=== PATIENT | female | born 1975 | race Caucasian/White ===

== ENCOUNTER 2017-04-29 10:46 | Inpatient (IN) | payer OTHER ==
[2017-04-28 16:26] VITALS: BMI 39.5
[~2017-04-29 10:46] MED LIST: BUPIVACAINE HCL/PF 0.5% (5MG/ML) 10 ML VIAL IJ ONE
[2017-04-29] MEDS ORDERED: BUPIVACAINE HCL/PF 0.5% (5MG/ML) 10 ML VIAL ONE (11:40)
[2017-04-29] MEDS ORDERED: MIDAZOLAM HCL 2 MG/2 ML SINGLE DOSE VIAL ONE (13:22)
--- NOTE | 2017-04-29 13:31 | HP ---
History & Physical Update - History History: No Change - Physical Physical: No Change - Assessment Assessment: No Change - Plan Plan: No Change (laparoscopic vertical lseeve gastrectomy possible open, possible liver biopsy, EGD)
[2017-04-29] MEDS ORDERED: PROPOFOL 20 ML ONE (13:36)
[2017-04-29] MEDS ORDERED: DEXAMETHASONE SOD PHOSPHATE 4 MG/1 ML VIAL ONE ×2 (13:36→15:22)
[2017-04-29] MEDS ORDERED: LIDOCAINE HCL/PF 2% SDV 5ML VIAL ONE (13:36)
[2017-04-29] MEDS ORDERED: ROCURONIUM BROMIDE 50 MG/5 ML VIAL ONE (13:37)
[2017-04-29] MEDS ORDERED: ceFAZolin SODIUM 1 GM VIAL ONE (13:37)
[2017-04-29] MEDS ORDERED: ceFAZolin SODIUM 1 GM VIAL IVPB ONE (13:44)
[2017-04-29] MEDS ORDERED: GLYCOPYRROLATE 0.2 MG/1 ML VIAL ONE (15:20)
[2017-04-29] MEDS ORDERED: NEOSTIGMINE METHYLSULFATE 0.5 MG/ML - 10 ML MDV ONE (15:20)
[2017-04-29] MEDS ORDERED: BUPIVACAINE HCL/PF 0.5% (5MG/ML) 10 ML VIAL IJ ONE (16:19)
--- NOTE | 2017-04-29 16:41 | OP ---
Operative Note - Note: Operative Date: 04/29/17 Pre-Operative Diagnosis: Morbid obesity Operation: Laparoscopic vertical sleeve gastrectomy, wedge liver biopsy, EGD Post-Operative Diagnosis: Other (Morbid obesity, hepatomegaly) Surgeon: Tom Owusu (alexander jones) Crop Picker: Aliyah Schultz Anesthesia: General Specimens Removed: Greater curvature of stomach, left lobe wedge liver biopsy Estimated Blood Loss (mls): 50 Drains & Tubes with Location: 36 Fr Bougie Operative Report Dictated: Yes
[2017-04-29] MEDS ORDERED: HYDROmorphone HCL CARPU-JECT 1 MG/1 ML DISP.SYRIN IVPB PRN (16:43)
[2017-04-29] MEDS ORDERED: HYDROmorphone HCL CARPU-JECT 2 MG/1 ML DISP.SYRIN ONE (16:43)
[2017-04-29] MEDS ORDERED: SODIUM CHLORIDE 1,000 ML IV SCH (16:45)
[2017-04-29] MEDS: HYDROmorphone HCL CARPU-JECT 1 MG/1 ML DISP.SYRIN IVPUSH PRN ×2 (16:45→17:50)
[2017-04-29] MEDS: ACETAMINOPHEN 1000 MG/100 ML VIAL (NON FORMULARY) IVPB SCH ×2 (16:50→22:28)
[2017-04-29] MEDS: METOCLOPRAMIDE HCL INJECTION 10 MG/2 ML VIAL IVPUSH SCH ×2 (16:55→22:28)
[2017-04-29] MEDS: ONDANSETRON 4 MG/2 ML VIAL IVPUSH SCH ×2 (17:00→22:28)
--- NOTE | 2017-04-29 17:13 | SPEC ---
DATE OF OPERATION: 04/29/2017 SURGEON: Tom Owusu MD INDUSTRIAL SEWER: YULY Burnette and YULY Sánchez PREOPERATIVE DIAGNOSES: 1. Morbid obesity, body mass index of 39.5. 2. Sleep apnea. POSTOPERATIVE DIAGNOSES: 1. Morbid obesity, body mass index of 39.5. 2. Sleep apnea. 3. Hepatomegaly. PROCEDURE: Laparoscopic vertical sleeve gastrectomy, laparoscopic wedge liver biopsy, and upper endoscopy/esophagogastroduodenoscopy. SPECIMEN: Greater curvature of the stomach and left lobe of the liver wedge liver biopsy. ESTIMATED BLOOD LOSS: 50 mL DRAINS: None. ANESTHESIA: GET. BOUGIE: 36-Korean. REASON FOR PROCEDURE: This is a 41-year-old female who presented to the office for weight loss options. After describing different options, she decided to proceed with a laparoscopic, possible open vertical sleeve gastrectomy, possible liver biopsy, and upper endoscopy. RISKS AND BENEFITS: After describing the different options for weight loss management, the patient decided to proceed with a laparoscopic, possible open vertical sleeve gastrectomy. The patient was seen by the respective subspecialties and cleared for surgery. The risks and benefits of the procedure were explained. These included bleeding, infection, hernia, MT, DVT, PE, injury to surrounding structures including the liver, colon, bowel, spleen, esophagus, vessel injury, nerve injury, weight regain, gastric leak, staple line leak, sleeve leak, obstruction, vitamin deficiency, hair loss and as some of the possible complications. The patient understood and signed informed consent. DESCRIPTION OF PROCEDURE: The patient was placed supine on the operating room table. The patient underwent general endotracheal intubation. A Hurtado catheter was inserted. The arms were brought out at 90 degrees and secured. A footboard was placed and the legs were secured laterally with padding. The abdomen was prepped and draped in the usual sterile fashion. A timeout was performed. An incision was made in the left upper quadrant and a Veress needle inserted. Pneumoperitoneum was established. Subsequently, the Veress needle was removed and a 12-mm trocar was placed. The laparoscopic camera was then inserted and inspection of the abdominal cavity was performed. An incision was then made in the supraumbilical area and a 15-mm trocar was placed under direct visualization. A 5-mm trocar was then placed in the right upper quadrant and a 5-mm trocar was placed below the left subcostal margin. A stab wound was made in the subxiphoid area and a Brianna clamp inserted and removed to dilate the tract. A Jordan liver retractor was inserted. The post was secured at the bedside by the nursing staff. The patient was placed in steep reverse Trendelenburg position and the Jordan liver retractor was used to secure the liver towards the anterior abdominal wall. The pylorus was identified and 6 cm proximal to it, the lesser sac was entered using the LigaSure device. All lateral attachments to the greater curvature of the stomach, including the short gastric vessels, were ligated using the LigaSure device toward the gastrosplenic and gastrophrenic ligaments. Once this was done in its entirety, it was confirmed that all tubes within the nasal or oropharyngeal cavity, including a temperature probe, was removed by Anesthesia. The bougie was then inserted by Anesthesia. Transection of the stomach was then begun staying adjacent to the bougie but away from the angularis. Transection of the stomach was performed near the portion of the stomach where the lesser sac was entered. Two laparoscopic Endo-HARISH black liane were used at this location. Laparoscopic Endo HARISH purple staple loads were then used for the remainder of the transection until the greater curvature of the stomach was fully transected. This was done staying close to the bougie. Care was taken to stay away from the angle of His cephalad. The staple line was then inspected. Hemostasis was identified. A leak test was then performed. It was clamped distally to the staple line. Irrigation solution was placed in the left upper quadrant and air was insufflated by Anesthesia into the sleeve. No leaks were identified. No obstruction was identified. This was done through the entirety of the staple line. At this point, the irrigation solution was suctioned and again, hemostasis was noted. A wedge liver biopsy was then performed. The left lobe of the liver was identified and a portion of the edge was grasped. Using electrocautery, a wedge of the liver was excised. This was removed and sent off the field as specimen. Hemostasis at the site of the wedge liver biopsy was attained using electrocautery. The 15-mm supraumbilical trocar was then removed and the greater curvature specimen removed from the site using a sponge stick burnett. The specimen was inspected and a Veress needle inserted. The specimen insufflated adequately and no leak was identified. The staple line was noted to be intact. A Chilango-El device was then used to temporarily close the fascia with a 0 Vicryl suture at the site. The 15-mm trocar was then reinserted and the 12-mm trocar in the left upper quadrant was removed. The fascia at this site was then closed using the Chilango-El device with a 0 Vicryl suture. Again, hemostasis was noted. The Jordan liver retractor was then removed under direct visualization. Pneumoperitoneum was desufflated and the fascial sutures were secured. Hemostasis was noted at all incision sites and Marcaine was injected at all incision sites. All incision sites were closed using 4-0 Biosyn. Sterile dressings were applied. The patient tolerated the procedure well and was transferred to the recovery room in stable condition with the Hurtado catheter intact. The patient was transferred to telemetry for further monitoring. In addition, at the end of the case, upper endoscopy was performed to further evaluate the staple line. The entirety of the staple line, gastric pouch was inspected. Hemostasis was noted. No leak or obstruction was noted. The stomach was suctioned, decompressed, and the endoscope removed. The patient tolerated the procedure well, was transferred to recovery room in stable condition. Tisha [id number]
[2017-04-29 17:31] LABS: HEMATOCRIT 38.9 % (32.4-45.2); HEMOGLOBIN 13.2 GM/dL (10.7-15.3); MCH 34.8 pg (25.7-33.7); MCHC 33.9 g/dl (32.0-36.0); MEAN CELL VOLUME 102.5 fl (80-96); MEAN PLT VOLUME 7.2 fl (7.5-11.1); PLATELET COUNT 272 K/MM3 (134-434); WHITE BLOOD COUNT 3.9 K/mm3 (4.0-10.0)
[2017-04-29 17:57] LABS: ALBUMIN 3.4 g/dl (3.4-5.0); ANION GAP 10 (8-16); BILIRUBIN,TOTAL 0.3 mg/dL (0.2-1.0); BLOOD UREA NITROGEN 8 mg/dL (7-18); CALCIUM 7.8 mg/dL (8.5-10.1); CHLORIDE 106 mmol/L (98-107); CO2 24 mmol/L (21-32); CREATININE 0.7 mg/dL (0.55-1.02); GLUCOSE,RANDOM 133 mg/dL (74-106); POTASSIUM 3.9 mmol/L (3.5-5.1); SGOT/AST 100 U/L (15-37); SGPT/ALT 71 U/L (12-78); SODIUM 140 mmol/L (136-145)
[2017-04-29 17:59] LABS: ALK PHOS 81 U/L (45-117); TOT PROT 7.2 g/dl (6.4-8.2)
--- NOTE | 2017-04-29 19:14 | SURG ---
Surgery Edger Machine Operator Note Edger Machine Operator: Aliyah Schultz PA-C Date of Service: 04/29/17 Diagnosis: morbid obesity, sleep apnea Procedure: Laparoscopic vertical sleeve gastrectomy, wedge liver biopsy, EGD I was present for the entirety of the operative procedure. For further detail, please refer to operative report. Visit type - Case Type Case Type: Scheduled Admission - Emergency Emergency Visit: No - New patient This patient is new to me today: Yes Date on this admission: 04/29/17
[2017-04-29] MEDS ORDERED: SODIUM CHLORIDE 0.45% 1,000 ML IV SCH (21:42)
[2017-04-29] MEDS: FAMOTIDINE 20 MG/50 ML IVPB 20 MG/50 ML MG IVPB SCH (22:27)
[2017-04-29] MEDS: ENOXAPARIN NA (PORCINE) 40 MG/0.4 ML DISP.SYRIN SQ SCH (22:29)
[2017-04-30] MEDS: METOPROLOL TARTRATE 5 MG/5 ML VIAL IVPB SCH ×4 (00:33→13:06)
[2017-04-30] MEDS: ONDANSETRON 4 MG/2 ML VIAL IVPUSH SCH ×6 (00:34→20:30)
[2017-04-30] MEDS: ACETAMINOPHEN 1000 MG/100 ML VIAL (NON FORMULARY) IVPB SCH ×2 (05:05→12:03)
[2017-04-30] MEDS: METOCLOPRAMIDE HCL INJECTION 10 MG/2 ML VIAL IVPUSH SCH ×4 (05:06→21:58)
[2017-04-30 07:31] LABS: HEMATOCRIT 36.8 % (32.4-45.2); HEMOGLOBIN 12.3 GM/dL (10.7-15.3); MCH 34.3 pg (25.7-33.7); MCHC 33.6 g/dl (32.0-36.0); MEAN CELL VOLUME 102.1 fl (80-96); MEAN PLT VOLUME 7.4 fl (7.5-11.1); PLATELET COUNT 225 K/MM3 (134-434); RDW 12.6 % (11.6-15.6); WHITE BLOOD COUNT 4.2 K/mm3 (4.0-10.0)
[2017-04-30 08:06] LABS: CHLORIDE 105 mmol/L (98-107); POTASSIUM 3.8 mmol/L (3.5-5.1); SODIUM 137 mmol/L (136-145)
[2017-04-30 08:19] LABS: ALBUMIN 3.1 g/dl (3.4-5.0); ALK PHOS 66 U/L (45-117); ANION GAP 10 (8-16); BILIRUBIN,TOTAL 0.5 mg/dL (0.2-1.0); BLOOD UREA NITROGEN 6 mg/dL (7-18); CALCIUM 7.2 mg/dL (8.5-10.1); CO2 22 mmol/L (21-32); CREATININE 0.5 mg/dL (0.55-1.02); GLUCOSE,RANDOM 104 mg/dL (74-106); SGOT/AST 204 U/L (15-37); SGPT/ALT 116 U/L (12-78); TOT PROT 6.2 g/dl (6.4-8.2)
[2017-04-30] MEDS ORDERED: FLU VACCINE QUAD 60 MCG/0.5 ML (MDV 17-18) IM ONE (10:00)
--- NOTE | 2017-04-30 10:32 | CON.CARD ---
Consult Consult Specialty:: Cardiology Referred by:: Dr. Owusu Reason for Consultation:: Post op HTN, tachycardia - History of Present Illness Chief Complaint: Post op from bariatric surgery History of Present Illness: 41 year old woman h/o obesity now s/p bariatric surgery noted to have post op HTN and sinus tachycardia. Pt was seen and examined today in [facility]. states that she has mild substernal chest discomfort since surgery. States that prior to surgery she has not had issues with her blood pressure and she monitors it at home. She did have palpitations occasionally in the past. As per documentation in the paper chart from her PMD she was planned for an echo preop but results not available. - History Source History Provided By: Patient, Medical Record Limitations to Obtaining History: Language Barrier - Past Medical History ...LMP: 04/01/17 ...LMP Comment: regular ...: No - Alcohol/Substance Use Hx Alcohol Use: Yes (socially) - Smoking History Smoking history: Never smoked Have you smoked in the past 12 months: No - Social History ADL: Independent History of Recent Travel: No Home Medications - Allergies Allergies/Adverse Reactions: Allergies Allergy/AdvReac Type Severity Reaction Status Date / Time No Known Drug Allergies Allergy Verified 04/29/17 11:33 - Home Medications Home Medications: Ambulatory Orders Docusate Sodium [Colace -] 100 mg PO TID #90 capsule 04/29/17 Famotidine [Pepcid] 20 mg PO BID #60 tablet 04/29/17 Oxycodone HCl/Acetaminophen [Percocet 5-325 mg Tablet] 1 - 2 tab PO Q6H #28 tab MDD 4 04/29/17 Family Disease History - Family Disease History Family Disease History: Other: Mother (HTN) Review of Systems - Review of Systems Constitutional: denies: No Symptoms, Chills, Diaphoresis, Fever, Lethargy, Loss of Appetite, Malaise, Night Sweats, Unintentional Wgt. Loss, Weakness, Other Eyes: denies: No Symptoms, Blind Spots, Blurred Vision, Double Vision, Eye Pain , Floaters, Photophobia, Recent Change in Vision, Other HENT: denies: No Symptoms, Difficult Swallowing, Ear Discharge, Ear Pain, Epistaxis, Gingival Bleeding, Hearing Loss, Mouth Swelling, Nasal Congestion, Ocular Prosthesis, Throat Pain, Toothache, Ringing in Ears, Other Neck: denies: No Symptoms, Decreased ROM, Lumps, Pain on Movement, Stiffness, Swollen Glands, Tenderness, Other Cardiovascular: denies: No Symptoms, Chest Pain, Edema, Palpitations, Shortness of Breath, Other Respiratory: denies: No Symptoms, Cough, Exercise Intolerance, Hemoptysis, Orthopnea, PND, Snoring, SOB, SOB on Exertion, Wheezing, Other Gastrointestinal: denies: No Symptoms, Abdominal Pain, Bloating, Constipation, Diarrhea, Dysphagia, Indigestion, Melena, Nausea, Rectal Bleeding, Vomiting, Vomiting Blood, Other Genitourinary: denies: No Symptoms, Burning, Discharge, Dysuria, Flank Pain, Frequency, Hematuria, Incontinence, Lesions, Menses, Pain, Testicular Mass, Testicular Pain, Testicular Swelling, Urgency, Vaginal Bleeding, Other Breasts: denies: No Symptoms Reported, See HPI, Breast Implants, Discharge from Nipple, Lumps, Pain, Skin Changes, Other Musculoskeletal: denies: No Symptoms, Back Pain, Crepitus, Decreased ROM, Extremity Pain, Joint Pain, Joint Swelling, Muscle Pain, Muscle Cramps, Muscle Weakness, Other Integumentary: denies: No Symptoms, Blister, Bruising, Change in Color, Eczema, Erythema, Incision, Lesions, Lump, Pallor, Pruritis, Rash, Wound, Other Neurological: denies: No Symptoms, Change in LOC, Change in Speech, Confusion, Dizziness, Headache, Incoordination, Numbness, Parasthesia, Pre-Existing Deficit , Seizure, Syncope, Tremors, Unsteady Gait, Weakness, Other Endocrine: denies: No Symptoms, Excessive Sweating, Flushing, Increased Hunger, Increased Thirst, Intolerance to Cold, Intolerance to Heat, Unexplained Weight Gain, Unexplained Weight Loss, Other Hematology/Lymphatic: denies: No Symptoms, Easily Bruised, Excessive Bleeding, Swollen Glands, Other Psychiatric: denies: No Symptoms, Altered Sleep Pattern, Anxiety, Depression, Hallucinations, Panic, Paranoia, Suicidal, Other Vital Signs: Vital Signs Temperature 98.9 F 04/30/17 04:41 Pulse Rate 99 H 04/30/17 06:10 Respiratory Rate 20 04/30/17 04:41 Blood Pressure 153/95 04/30/17 06:10 O2 Sat by Pulse Oximetry (%) 95 04/29/17 21:00 Constitutional: Yes: No Distress, Calm, Obese Eyes: Yes: Conjunctiva Clear, EOM Intact, PERRL HENT: Yes: Atraumatic, Normocephalic Neck: Yes: Supple, Trachea Midline Respiratory: Yes: Regular, CTA Bilaterally. No: Rales, Rhonchi, SOB, Wheezes Gastrointestinal: Yes: Normal Bowel Sounds, Soft. No: Distention, Tenderness Renal/: Yes: WNL Cardiovascular: Yes: Regular Rate and Rhythm. No: Bradycardia, Tachycardia, Pulse Irregular, Gallop, Rub, Varicosities JVD: No Carotid Bruit: No PMI: Non-Displaced Heart Sounds: Yes: S1, S2. No: Split S2, S3, S4, Clicks, Gallop, Rub, Bruit Murmur: No: Systolic Murmur, Diastolic Murmur Musculoskeletal: Yes: WNL Extremities: Yes: WNL Edema: No Peripheral Pulses WNL: Yes Peripheral Pulses: 2+ Left Doralis Pedis, 2+ Right Dorsalis Pedis Integumentary: Yes: WNL Neurological: Yes: Alert, Oriented, Cran Nerves II-XII Intact Psychiatric: Yes: Alert, Oriented - Other Data Labs, Other Data: CBC, BMP 04/30/17 05:57 04/30/17 05:57 EKG-NSR Imaging - Results Chest X-ray: Report Reviewed, Image Reviewed EKG: Report Reviewed, Image Reviewed Other: Report Reviewed, Image Reviewed (tele-nsr, sinus tach, no arrhythmias) Assessment/Plan 41 year old woman h/o obesity now s/p bariatric surgery noted to have post op HTN and sinus tachycardia. HTN-currently mildly elevated -no history of chronic HTN, but she does report some readings in 130s-140s/90s at home previously -likely secondary to pain, IV Fluids, post op state -reduce IV fluids and stop if possible -pain control -can use IV lopressor prn for now -would not start standing po HTN meds at this point, if remains persistently hypertensive despite pain control and stopping fluids then would consider a low dose medication with plan for close outpatient f/up. Can start Norvasc 2.5mg daily at that point if needed. -recc close outpatient f/up Tachycardia-sinus tach, no arrhythmias, currently NSR normal HR -likely due to pain and post op state -cont pain control -can d/c tele -pt does report having palpitations and "tachycardia" in the past, can be followed as outpatient and can have holter monitor
--- NOTE | 2017-04-30 10:48 | PN ---
Progress Note (short form) - Note Progress Note: Post op day#1.S/P Laproscopic Gastric sleeve placement under GA uneventful.Patient stable.No any anesthesia related problem.Patient DC from the anesthesia care.
[2017-04-30] MEDS ORDERED: PT OWN MED DRAWER 7, Y5N ONE (10:58)
[2017-04-30] MEDS: ENOXAPARIN NA (PORCINE) 40 MG/0.4 ML DISP.SYRIN SQ SCH ×2 (11:05→21:57)
[2017-04-30] MEDS: FAMOTIDINE 20 MG/50 ML IVPB 20 MG/50 ML MG IVPB SCH ×2 (11:05→21:58)
[2017-04-30] MEDS ORDERED: oxyCODONE HCL 5 MG TABLET PO PRN (11:24)
[2017-04-30] MEDS ORDERED: ACETAMINOPHEN 325 MG TABLET (FP) PO PRN (11:24)
--- NOTE | 2017-04-30 11:27 | PN ---
Progress Note (short form) - Note Progress Note: Pt with complaints of pain to her left side upper abd, increased with deep inspiration. Vital Signs Period Temp Pulse Resp BP Sys/Haq Pulse Ox Last 24 Hr 97.6 F-98.9 F 80-105 16-20 116-170/75-105 95-100 GEN: appears comfortable CV: RRR Lungs: CTA b/l anteriorly ABD: soft, nondistended, Mild left upper abd tenderness. No guarding or rebound. Inc c/d/i LE: no calf tenderness or swelling noted b/l. CBC, BMP 04/30/17 05:57 04/30/17 05:57 UGI-negative, no evidence of leak or obstruction A/P: 41 yo female s/p lap sleeve gastrectomy, POD#1 UGI-negative may begin stage one diet oob/ambaulte Cardiology f/u, started on IV lopressor last pm for elevated BP. Continue DVT ppx, GI IV oral pain medications as needed pain D/w Dr. Owusu
[2017-04-30] MEDS: SODIUM CHLORIDE 1,000 ML IV SCH (12:59)
[2017-04-30] MEDS: HYDROmorphone HCL CARPU-JECT 2 MG/1 ML DISP.SYRIN IVPB PRN ×4 (14:00→23:33)
[2017-04-30] MEDS ORDERED: METOPROLOL TARTRATE 5 MG/5 ML VIAL IVPB PRN (14:13)
--- NOTE | 2017-04-30 17:47 | PN ---
Progress Note (short form) - Note Progress Note: POD 1 Pain controlled Vital Signs Period Temp Pulse Resp BP Sys/Haq Pulse Ox Last 24 Hr 98.0 F-98.9 F 79-105 16-20 130-170/72-105 95-100 Abd soft CBC, BMP 04/30/17 05:57 04/30/17 05:57 UGI: no leak/obstruction Clears Ambulate
[2017-05-01] MEDS: ONDANSETRON 4 MG/2 ML VIAL IVPUSH SCH ×4 (01:32→12:16)
[2017-05-01] MEDS: HYDROmorphone HCL CARPU-JECT 2 MG/1 ML DISP.SYRIN IVPB PRN ×3 (03:22→12:36)
[2017-05-01] MEDS: METOCLOPRAMIDE HCL INJECTION 10 MG/2 ML VIAL IVPUSH SCH ×2 (05:24→10:39)
[2017-05-01] MEDS: ENOXAPARIN NA (PORCINE) 40 MG/0.4 ML DISP.SYRIN SQ SCH (09:10)
[2017-05-01] MEDS: FAMOTIDINE 20 MG/50 ML IVPB 20 MG/50 ML MG IVPB SCH (09:10)
[2017-05-01 09:26] VITALS: BP 134/80; PULSE 102; TEMP 100.4
--- NOTE | 2017-05-01 10:13 | PN ---
Progress Note, Physician Chief Complaint: Pt A&Ox3; c/o pain at abdominal lap sites; c/o constipation/ c/o left upper back pain. History of Present Illness: 41 year old woman h/o morbid obesity, now s/p bariatric surgery; noted to have post op HTN and sinus tachycardia. Pt was seen and examined in [facility]. states that she has mild substernal chest discomfort since surgery. States that prior to surgery she has not had issues with her blood pressure and she monitors it at home. She did have palpitations occasionally in the past. As per documentation in the paper chart from her PMD she was planned for an echo preop but results not available. - Current Medication List Current Medications: Active Medications Acetaminophen (Tylenol -) 325 mg PO Q4H PRN PRN Reason: PAIN LEVEL 1 - 3 Last Admin: 05/01/17 05:20 Dose: 325 mg Enoxaparin Sodium (Lovenox -) 40 mg SQ BID [facility] Last Admin: 05/01/17 09:10 Dose: 40 mg Hydromorphone HCl (Dilaudid Injection -) 1 mg IVPB Q3H PRN PRN Reason: pain Last Admin: 05/01/17 09:12 Dose: 1 mg Famotidine/Sodium Chloride (Pepcid 20 Mg Premixed Ivpb -) 20 mg in 50 mls @ 100 mls/hr IVPB BID [facility] Last Admin: 05/01/17 09:10 Dose: 100 mls/hr Sodium Chloride (Normal Saline -) 1,000 mls @ 75 mls/hr IV ASDIR [facility] Last Admin: 04/30/17 12:59 Dose: 75 mls/hr Metoclopramide HCl (Reglan Injection -) 10 mg IVPUSH Q6H [facility] Last Admin: 05/01/17 05:24 Dose: 10 mg Metoprolol Tartrate (Lopressor Injection -) 5 mg IVPB Q6H PRN PRN Reason: HYPERTENSION Ondansetron HCl (Zofran Injection) 4 mg IVPUSH Q4H [facility] Last Admin: 05/01/17 09:11 Dose: 4 mg Oxycodone HCl (Roxicodone -) 5 mg PO Q4H PRN PRN Reason: PAIN LEVEL 1-5 Last Admin: 05/01/17 05:47 Dose: 5 mg - Objective Vital Signs: Vital Signs Temperature 100.4 F H 05/01/17 09:25 Pulse Rate 102 H 05/01/17 09:25 Respiratory Rate 16 05/01/17 09:25 Blood Pressure 134/80 05/01/17 09:25 O2 Sat by Pulse Oximetry (%) 96 04/30/17 21:00 Constitutional: Yes: Obese Labs: CBC, BMP 04/30/17 05:57 04/30/17 05:57 Problem List - Problems (1) Sinus tachycardia Assessment/Plan: HR now in 90s; multiple factors driving high HR, including fever, anxiety, pain , dehydration. F/u TSH. Code(s): R00.0 - TACHYCARDIA, UNSPECIFIED (2) Hepatomegaly Code(s): R16.0 - HEPATOMEGALY, NOT ELSEWHERE CLASSIFIED (3) Morbid (severe) obesity due to excess calories Code(s): E66.01 - MORBID (SEVERE) OBESITY DUE TO EXCESS CALORIES (4) Sleep apnea Code(s): G47.30 - SLEEP APNEA, UNSPECIFIED (5) Fever Assessment/Plan: low grad; f/u. Code(s): R50.9 - FEVER, UNSPECIFIED (6) Anxiety Code(s): F41.9 - ANXIETY DISORDER, UNSPECIFIED (7) Gastric bypass status for obesity Assessment/Plan: pain managament F/u with surgeon. Code(s): Z98.84 - BARIATRIC SURGERY STATUS
[2017-05-01] MEDS: SODIUM CHLORIDE 1,000 ML IV SCH (12:15)
--- NOTE | 2017-05-05 13:08 | PATH ---
Surgical Pathology Report Patient Name: DARLINE NIÑO Med. Rec. #: [id number] /Age/Gender: 1975 (Age: 41) / F Account: [id number] Location: 4 W TELEMETRY U Taken: 04/29/2017 Received: 04/30/2017 Reported: 05/05/2017 Physicians: Tom Owusu M.D. Specimen(s) Received A: GREATER CURVATURE STOMACH B: LIVER BIOPSY Clinical History Morbid obesity Final Diagnosis A. STOMACH, GREATER CURVATURE, LAPAROSCOPIC VERTICAL SLEEVE GASTRECTOMY: PORTION OF STOMACH WITH MILD CHRONIC GASTRITIS. IMMUNOHISTOCHEMICAL STAIN FOR H. PYLORI IS NEGATIVE. B. LIVER, BIOPSY: PATCHY MILD STEATOSIS (~10 %). NO INCREASE IN IRON AND FIBROSIS ON PERFORMED SPECIAL STAINS (IRON AND TRICHROME). Electronically Signed Heidi Meneses M.D. Gross Description A. Received in formalin, labeled "greater curvature of stomach," is a 120 gram, 18.0 x 3.7 x 3.2 cm. portion of stomach with a stapled margin of resection. The serosa is oneal-okeefe with minimal attached fat and a focal defect. The mucosa is oneal-pink with normal folds. No mucosal masses are identified. Lineman sections are submitted in one cassette. B. Received in formalin labeled "liver biopsy," is a 2.8 x 1.5 x 0.6 cm oneal, irregular portion of soft tissue, consistent with liver. The specimen is bisected and entirely submitted in 2 cassettes. /04/30/2017 saudi04/30/2017
== END 2017-05-01 14:29 | disposition home or self-care (01) | DRG 403 ==
LOC: JSAMEDAYSX 10:46 → EDSTATUS 12:30 → J4W 18:30 → JERBED 04-30 10:15 → J4W 04-30 10:17
PROVIDERS: ADMIT Surgery; ATTEND Surgery
PROC: 0DB64Z3 Excision of Stomach, Percutaneous Endoscopic Approach, Vertical (ICD-10-PCS; principal; 2017-04-29 12:30)
PROC: 0FB24ZX Excision of Left Lobe Liver, Percutaneous Endoscopic Approach, Diagnostic (ICD-10-PCS; 2017-04-29 12:30)
PROC: 0DJ08ZZ Inspection of Upper Intestinal Tract, Via Natural or Artificial Opening Endoscopic (ICD-10-PCS; 2017-04-29 12:30)
DX: E66.01 Morbid (severe) obesity due to excess calories (principal); Z68.36 Body mass index [BMI] 36.0-36.9, adult; R16.0 Hepatomegaly, not elsewhere classified; K59.00 Constipation, unspecified; R00.0 Tachycardia, unspecified; F41.9 Anxiety disorder, unspecified; G47.30 Sleep apnea, unspecified
CPT/HCPCS: 36415; 74241-TC; 80053; 82962; 84443; 84703; 85027; 86850; 86900; 86901; 90688; 94760

== ENCOUNTER 2017-11-04 07:39 | Day surgery (SDC) | payer OTHER ==
[2017-11-03 14:50] VITALS: BMI 24.3
[2017-11-04] MEDS ORDERED: PROPOFOL 20 ML ONE ×2 (08:36)
[2017-11-04 09:05] VITALS: TEMP 98.4
--- NOTE | 2017-11-04 09:11 | OP ---
DATE OF OPERATION: 11/04/2017 SURGEON: Hussein Owusu MD LEVEL VIAL SETTER: None. PREOPERATIVE DIAGNOSIS: Decreased satiety after vertical sleeve gastrectomy. POSTOPERATIVE DIAGNOSIS: Normal gastric sleeve anatomy with adequate restriction and no dilation. PROCEDURE: Upper endoscopy/esophagogastroduodenoscopy. SPECIMEN: None. ESTIMATED BLOOD LOSS: 5 mL. ANESTHESIA: MAC. REASON FOR PROCEDURE: This is a 42-year-old female who presents to the office after having a vertical sleeve gastrectomy in the past. She stated that she felt that she possibly had decreased satiety after vertical sleeve gastrectomy, and therefore an upper endoscopy was performed to evaluate for possible sleeve dilation. Risks and benefits of the procedure were explained. These included bleeding, infection, abscess, perforation, injury to the surrounding structures including the oral cavity, esophagus, gastric pouch, intestine, LA, DVT, PE, as some of the complications. She understood and signed informed consent. DESCRIPTION OF PROCEDURE: Patient was placed in the left lateral decubitus position. She underwent MAC by Anesthesia. Time-out was performed. The endoscope was then placed and inserted into the oral cavity. The entirety of the esophagus, GE junction, gastric pouch was inspected up to the level of the pylorus. No evidence of dilation was noted. Adequate restriction was noted. Normal anatomy post sleeve was noted. The stomach was suctioned, and the endoscope removed. Patient tolerated the procedure well and was transferred to the recovery room in stable condition. HUSSEIN OWUSU M.D. ROBERTH/[id number]
[2017-11-04 09:50] VITALS: BP 119/83; PULSE 68
== END 2017-11-04 10:00 | disposition home or self-care (01) ==
LOC: JASU-ENDO 07:39
PROVIDERS: ATTEND Surgery
PROC: 0DJ08ZZ Inspection of Upper Intestinal Tract, Via Natural or Artificial Opening Endoscopic (ICD-10-PCS; principal; 2017-11-04 08:00)
DX: Z98.84 Bariatric surgery status (principal)
CPT/HCPCS: 84703